=== PATIENT | male | born 1985 | race Caucasian/White ===

== ENCOUNTER 2021-07-25 13:55 | Emergency (ER) | payer BC ==
[2021-07-25 15:01] VITALS: TEMP 98.2
[2021-07-25 15:32] LABS: Basophils % (A) 1 %; Eosinophils # (A) 0.1 k/uL (0-0.7); Eosinophils % (A) 1 %; HCT 44.6 % (39.0-53.0); HGB 15.7 gm/dL (13.0-17.5); Lymphocytes # (A) 0.8 k/uL (1.0-4.8); Lymphocytes % (A) 11 %; MCHC 35.2 g/dL (31.0-37.0); MCV 96.6 fL (80.0-100.0); Mean Platelet Volume 7.8; Monocytes # (A) 0.4 k/uL (0-1.0); Monocytes % (A) 6 %; Neutrophils # (A) 5.4 k/uL (1.3-7.7); Neutrophils % (A) 80 %; Platelet Count 241 k/uL (150-450); RBC 4.62 m/uL (4.30-5.90); RDW 11.6 % (11.5-15.5); WBC 6.7 k/uL (3.8-10.6)
--- NOTE | 2021-07-25 15:35 | XR ---
EXAMINATION TYPE: XR chest 2V DATE OF EXAM: 07/25/2021 COMPARISON: NONE HISTORY: Dizziness. Lightheadedness. Weakness. TECHNIQUE: Frontal and lateral views of the chest are obtained. FINDINGS: There is no focal air space opacity, pleural effusion, or pneumothorax seen. The cardiac silhouette size is within normal limits. The osseous structures are intact. IMPRESSION: No acute process.
[2021-07-25 15:42] LABS: Prothrombin Time 10.6 sec (9.0-12.0)
[2021-07-25 15:45] LABS: ALT 34 U/L (4-49); AST 46 U/L (17-59); African American GFR (CKD) >90 (>60 ml/min/1.73 sqM); Albumin 5.1 g/dL (3.5-5.0); Alkaline Phosphatase 88 U/L (38-126); Anion Gap 11 mmol/L; Blood Urea Nitrogen 10 mg/dL (9-20); Calcium 10.6 mg/dL (8.4-10.2); Carbon Dioxide 27 mmol/L (22-30); Chloride 101 mmol/L (98-107); Glucose 138 mg/dL (74-99); Non-African American GFR(CKD) >90 (>60 ml/min/1.73 sqM); Potassium 4.1 mmol/L (3.5-5.1); Sodium 139 mmol/L (137-145); Total Bilirubin 0.8 mg/dL (0.2-1.3); Total Protein 8.9 g/dL (6.3-8.2)
--- NOTE | 2021-07-25 16:58 | ED ---
General Adult HPI - General Chief complaint: Dizziness Stated complaint: Dizziness,Weakness Time Seen by Provider: 07/25/21 17:00 Source: patient, family, RN notes reviewed, old records reviewed Mode of arrival: ambulatory Limitations: no limitations - History of Present Illness Initial comments: This is a 36-year-old well-appearing white male, alert and oriented 4, presents to the emergency room with complaints of lightheadedness and upper body weakness that has been intermittent for the past year. Patient states that these episodes occur once or twice a week and last about 5 minutes where he feels a little fuzzy in the head with upper body weakness. He states it resolves on its own and is gone at this time. He did see Dr. Cotter today and had an EKG and blood glucose which was normal was told to come to the emergency room for evaluation. Patient states that he drinks 3 beers a day and a small Pack of cigarettes a day. Denies any other medical history or medical problems. He states that he does take a multivitamin daily. -: year(s) (1) Severity scale (1-10): 0 Consistency: intermittent, now resolved Improves with: rest Worsens with: none Treatments Prior to Arrival: none - Related Data Allergies Allergy/AdvReac Type Severity Reaction Status Date / Time Penicillins Allergy Nausea & Verified 07/25/21 15:01 Vomiting & Diarrhea Review of Systems ROS Statement: Those systems with pertinent positive or pertinent negative responses have been documented in the HPI. ROS Other: All systems not noted in ROS Statement are negative. Past Medical History Past Medical History: No Reported History History of Any Multi-Drug Resistant Organisms: None Reported Past Surgical History: No Surgical Hx Reported Past Psychological History: No Psychological Hx Reported Smoking Status: Current every day smoker Past Alcohol Use History: Daily Past Drug Use History: None Reported General Exam Limitations: no limitations General appearance: alert, in no apparent distress Head exam: Present: atraumatic, normocephalic, normal inspection Eye exam: Present: normal appearance, PERRL, EOMI. Absent: scleral icterus, conjunctival injection, periorbital swelling ENT exam: Present: normal exam, normal oropharynx, mucous membranes moist Neck exam: Present: normal inspection, full ROM. Absent: tenderness, menin gismus, lymphadenopathy Respiratory exam: Present: normal lung sounds bilaterally. Absent: respiratory distress, wheezes, rales, rhonchi, stridor Cardiovascular Exam: Present: regular rate, normal rhythm, normal heart sounds. Absent: systolic murmur, diastolic murmur, rubs, gallop, clicks GI/Abdominal exam: Present: soft, normal bowel sounds. Absent: distended, tenderness, guarding, rebound, rigid Extremities exam: Present: full ROM, normal capillary refill. Absent: tenderness Back exam: Absent: tenderness, CVA tenderness (R), CVA tenderness (L) Neurological exam: Present: alert, oriented X3, CN II-XII intact, normal gait Expanded Patient oriented to: Present: person, place, time Speech: Present: fluid speech Cranial nerves: EOM's Intact: Normal, Gag Reflex: Normal, Tongue Deviation: Normal Cerebellar function: Heel to Morales: Normal, Romberg: Normal Motor strength exam: RUE: 5, LUE: 5, RLE: 5, LLE: 5 Eye Response: (4) open spontaneously Motor Response: (6) obeys commands Verbal Response: (5) oriented Genaro Total: 15 Psychiatric exam: Present: normal affect, normal mood Skin exam: Present: warm, dry, intact, normal color. Absent: rash Course Vital Signs 07/25/21 14:56 Temperature 98.2 F Pulse Rate 97 Respiratory 18 Rate Blood Pressure 133/82 O2 Sat by Pulse 99 Oximetry EKG Findings - EKG Results: EKG: sinus rhythm (Ventricular rate 86, NM interval 0.144, QRS 0.90, QTC 0.457) Medical Decision Making - Medical Decision Making There is no evidence of anemia or leukocytosis. Patient's blood glucose is 138. Troponin is negative at 0.012 and EKG shows sinus rhythm with ventricular rate of 86. Chest x-ray shows no acute cardiopulmonary process. Patient has no focal neurological deficits. He has a steady gait. His symptoms are resolved. Patient states that the symptoms have been coming and going for over a year ago and at this time. He does state that he drinks 3 beers a day and does smoke half pack of cigarettes daily. He was directed to decrease his alcohol intake and take a multivitamin with thiamine daily. He is also directed to follow up with Dr. Moreno this week and was given a referral to neurology for his upper body weakness. Patient denies any pain or headaches these episodes occur Case is discussed with Dr. Mckinnon. - Lab Data Result diagrams: 07/25/21 15:21 07/25/21 15:21 Lab Results 07/25/21 07/25/21 07/25/21 Range/Units 15:21 15:21 15:21 WBC 6.7 (3.8-10.6) k/uL RBC 4.62 (4.30-5.90) m/uL Hgb 15.7 (13.0-17.5) gm/dL Hct 44.6 (39.0-53.0) % MCV 96.6 (80.0-100.0) fL MCH 34.0 (25.0-35.0) pg MCHC 35.2 (31.0-37.0) g/dL RDW 11.6 (11.5-15.5) % Plt Count 241 (150-450) k/uL MPV 7.8 Neutrophils % 80 % Lymphocytes % 11 % Monocytes % 6 % Eosinophils % 1 % Basophils % 1 % Neutrophils # 5.4 (1.3-7.7) k/uL Lymphocytes # 0.8 L (1.0-4.8) k/uL Monocytes # 0.4 (0-1.0) k/uL Eosinophils # 0.1 (0-0.7) k/uL Basophils # 0.0 (0-0.2) k/uL PT 10.6 (9.0-12.0) sec INR 1.0 (<1.2) Sodium 139 (137-145) mmol/L Potassium 4.1 (3.5-5.1) mmol/L Chloride 101 (98-107) mmol/L Carbon Dioxide 27 (22-30) mmol/L Anion Gap 11 mmol/L BUN 10 (9-20) mg/dL Creatinine 0.80 (0.66-1.25) mg/dL Est GFR (CKD-EPI)AfAm >90 (>60 ml/min/1.73 sqM) Est GFR (CKD-EPI)NonAf >90 (>60 ml/min/1.73 sqM) Glucose 138 H (74-99) mg/dL Calcium 10.6 H (8.4-10.2) mg/dL Total Bilirubin 0.8 (0.2-1.3) mg/dL AST 46 (17-59) U/L ALT 34 (4-49) U/L Alkaline Phosphatase 88 (38-126) U/L Troponin I (0.000-0.034) ng/mL Total Protein 8.9 H (6.3-8.2) g/dL Albumin 5.1 H (3.5-5.0) g/dL 07/25/21 Range/Units 15:21 WBC (3.8-10.6) k/uL RBC (4.30-5.90) m/uL Hgb (13.0-17.5) gm/dL Hct (39.0-53.0) % MCV (80.0-100.0) fL MCH (25.0-35.0) pg MCHC (31.0-37.0) g/dL RDW (11.5-15.5) % Plt Count (150-450) k/uL MPV Neutrophils % % Lymphocytes % % Monocytes % % Eosinophils % % Basophils % % Neutrophils # (1.3-7.7) k/uL Lymphocytes # (1.0-4.8) k/uL Monocytes # (0-1.0) k/uL Eosinophils # (0-0.7) k/uL Basophils # (0-0.2) k/uL PT (9.0-12.0) sec INR (<1.2) Sodium (137-145) mmol/L Potassium (3.5-5.1) mmol/L Chloride (98-107) mmol/L Carbon Dioxide (22-30) mmol/L Anion Gap mmol/L BUN (9-20) mg/dL Creatinine (0.66-1.25) mg/dL Est GFR (CKD-EPI)AfAm (>60 ml/min/1.73 sqM) Est GFR (CKD-EPI)NonAf (>60 ml/min/1.73 sqM) Glucose (74-99) mg/dL Calcium (8.4-10.2) mg/dL Total Bilirubin (0.2-1.3) mg/dL AST (17-59) U/L ALT (4-49) U/L Alkaline Phosphatase (38-126) U/L Troponin I <0.012 (0.000-0.034) ng/mL Total Protein (6.3-8.2) g/dL Albumin (3.5-5.0) g/dL Disposition Clinical Impression: Weakness, Lightheadedness Disposition: HOME SELF-CARE Condition: Good Additional Instructions: Follow-up with the primary care doctor next week. Return to the emergency room with any new or worsening symptoms. Decrease your alcohol intake. Continue multivitamins daily including thiamine. Is patient prescribed a controlled substance at d/c from ED?: No Referrals: Alexis Cotter MD [Primary Care Provider] - 1-2 days Dago Medina MD [STAFF PHYSICIAN] - 1-2 days Time of Disposition: 17:18
[2021-07-25 17:39] VITALS: BP 127/98; PULSE 76; RESP 16
== END 2021-07-25 17:38 | disposition home or self-care (01) ==
LOC: EC 13:55
DX: R42 Dizziness and giddiness (principal); R53.1 Weakness; F17.200 Nicotine dependence, unspecified, uncomplicated; Z88.0 Allergy status to penicillin
CPT/HCPCS: 36415; 71046; 80053; 84484; 85025; 85610; 93005; 99284